=== PATIENT | female | born 1965 | race Caucasian/White ===

== ENCOUNTER → 2016-09-26 | Outpatient (CLI) | payer BC, MEDICARE | LOC: KOH-I 07:56 | DX: R10.32 Left lower quadrant pain (principal); R91.1 Solitary pulmonary nodule; R91.8 Other nonspecific abnormal finding of lung field | CPT/HCPCS: 74176 ==

== ENCOUNTER → 2016-10-15 | Outpatient (CLI) | payer MEDICARE | LOC: CT 07:40 | DX: R91.1 Solitary pulmonary nodule (principal); R91.8 Other nonspecific abnormal finding of lung field | CPT/HCPCS: 71260; J7050; Q9962 ==

== ENCOUNTER → 2021-11-12 | Outpatient (CLI) | payer MEDICARE ==
[~2021-11-12] MED LIST: ANTI-ITCH28 GM TP; IBUPROFEN600 MG PO
== END ==
LOC: KOH-I 10:30
DX: Z87.891 Personal history of nicotine dependence (principal); R91.1 Solitary pulmonary nodule
CPT/HCPCS: 71271

== ENCOUNTER → 2022-01-30 | Outpatient (CLI) | payer MEDICARE ==
[2022-01-30 12:34] LABS: RED BLOOD COUNT 4.2 M/UL (4.00-5.10); WHITE BLOOD COUNT 8.4 K/UL (4.5-11.0)
[2022-01-30 13:06] LABS: BUN/CREATININE RATIO 28 (0-10)
[2022-01-31 07:10] LABS: HBSAG SCREEN Negative (Negative); HCV AB <0.1 (0.0-0.9); HEP A AB, IGM Negative (Negative); HEP B CORE AB, IGM Negative (Negative)
[2022-02-01 20:09] LABS: QUANTIFERON MITOGEN VALUE >10.00 IU/mL (.); QUANTIFERON NIL VALUE 0.01 IU/mL (.); QUANTIFERON TB1 AG VALUE 0.01 IU/mL (.); QUANTIFERON TB2 AG VALUE 0.02 IU/mL (.); QUANTIFERON-TB GOLD PLUS Negative (Negative)
== END ==
LOC: LAB 11:02
PROVIDERS: Dermatology
DX: J43.9 Emphysema, unspecified (principal); L40.0 Psoriasis vulgaris; L40.1 Generalized pustular psoriasis; Z98.890 Other specified postprocedural states
CPT/HCPCS: 36415; 71046; 80053; 80074; 82465; 84478; 85027